=== PATIENT | male | born 1990 | race Two or more races ===

== ENCOUNTER 2017-07-03 17:50 | Emergency (ER) | payer MEDICAID ==
[~2017-07-03] VITALS: Ht 170.2 cm; Wt 95.3 kg
[2017-07-03 18:29] VITALS: BP 128/89
[2017-07-03] MEDS ORDERED: IBUPROFEN 600 MG TAB PO ONE (21:15)
== END 2017-07-03 21:23 | disposition home or self-care (01) ==
LOC: ER 17:50
DX: S62.304A Unspecified fracture of fourth metacarpal bone, right hand, initial encounter for closed fracture (principal); W51.XXXA Accidental striking against or bumped into by another person, initial encounter; Y93.89 Activity, other specified; Y99.8 Other external cause status; Y92.89 Other specified places as the place of occurrence of the external cause
CPT/HCPCS: 73130